=== PATIENT | female | born 1995 | race Caucasian/White ===

== ENCOUNTER 2019-09-28 03:22 | Emergency (ER) | payer BC, MEDICAID | END 2019-09-28 03:44 | disposition home or self-care (01) | LOC: ERS 03:22 | DX: O99.89 Other specified diseases and conditions complicating pregnancy, childbirth and the puerperium (principal); R10.30 Lower abdominal pain, unspecified; M54.5 Low back pain; O99.281 Endocrine, nutritional and metabolic diseases complicating pregnancy, first trimester; E03.9 Hypothyroidism, unspecified; O99.341 Other mental disorders complicating pregnancy, first trimester; F31.9 Bipolar disorder, unspecified; F20.9 Schizophrenia, unspecified; O99.331 Smoking (tobacco) complicating pregnancy, first trimester; F17.210 Nicotine dependence, cigarettes, uncomplicated; Z79.899 Other long term (current) drug therapy; Z3A.08 8 weeks gestation of pregnancy ==

== ENCOUNTER 2019-12-26 10:31 | Outpatient (CLI) | payer BC, OTHER ==
--- NOTE | 2019-12-26 11:51 | ULT ---
ULTRASOUND OBSTETRICAL COMPLETE: DATE: 12/26/2019 HISTORY: 24-year-old female ICD-10: "O09.892, supervision of other high-risk pregnancies, second trim maxwell. Comments: Complete anatomy, size and dates, cervical length" FINDINGS: number: jane lie: Cephalic Maternal cervix: 3 cm. Closed. Placenta: Anterior. No placenta previa. Amniotic fluid volume: ALFREDITO = 15 cm heart rate: 134 bpm The following anatomy is visualized, with no evidence of anomalies: Head, cerebellum, lateral ventricles, four-chamber heart, stomach, kidneys, cord insertion, bladder, cervical spine, thoracic spine, lumbar spine, sacrum, nose and lips, upper extremities, lower extremities, and three-vessel cord. biometry: Biparietal diameter (BPD): 5.0 cm 21 w 1 d Head circumference (HC): 18.1 cm 20 w 4 d Abdominal circumference (AC): 15.2 cm 20 w 3 d Femur length (FL): 3.7 cm 21 w 5 d Average ultrasound age (AUA): 21 w 0 d Estimated date of delivery (SUKHI): 05/07/2020 Estimated weight (EFW): 389 g +/- 57 g IMPRESSION: 1) Live 2nd trimester intrauterine gestation. 2) Estimated gestational age of 21 weeks, 0 days 3) cephalic lie. 4) no anatomic abnormality identified.
== END 2019-12-26 10:32 | disposition home or self-care (01) ==
LOC: BICULT 10:31
PROVIDERS: ATTEND Family Medicine
DX: O09.892 Supervision of other high risk pregnancies, second trimester (principal); Z3A.21 21 weeks gestation of pregnancy
CPT/HCPCS: 76805

== ENCOUNTER 2020-03-27 03:11 | Inpatient (IN) | payer BC, OTHER ==
[2020-03-27] MEDS ORDERED: hydrALAZINE 20 MG/ML VIAL SLOW IVP PRN ×2 (03:46→06:37)
[2020-03-27 03:57] VITALS: BP 101/66; TEMP 98.9; BMI 29.2
[2020-03-27] MEDS ORDERED: Lactated Ringer's 1,000 ML IV SCH (04:00)
[2020-03-27] MEDS: Lactated Ringer's 1,000 ML IV SCH ×3 (04:45→15:15)
[2020-03-27 05:05] LABS: Amphetamine Not Detected (NotDetected); Barbiturates Screen Not Detected (NotDetected); Benzodiazepine Screen Not Detected (NotDetected); Cocaine Metabolite Screen Not Detected (NotDetected); Medtox Control Line Valid? VALID (VALID); Medtox Reader # READER 1; Methadone Not Detected (NotDetected); Methamphetamine Not Detected (NotDetected); Opiate Screen Not Detected (NotDetected); Oxycodone Screen Not Detected (NotDetected); Phencyclidine (PCP) Not Detected (NotDetected); THC/Cannabinoid Screen Not Detected (NotDetected); Tricyclic Screen Not Detected (NotDetected)
[2020-03-27] MEDS ORDERED: Butorphanol Tartrate 1 MG/ML VIAL SLOW IVP PRN ×2 (05:34→06:37)
[2020-03-27 05:51] LABS: Bacteria/HPF None Seen HPF (None Seen); Bilirubin Negative (Negative); Blood, Urine 2+ (Negative); Clarity Clear (Clear); Glucose, Urine (Dipstick) Normal (Negative); Ketone, Urine Negative (Negative); Leukocyte 75 Leu/uL (Negative); Nitrite Negative (Negative); Protein, Urine (Dipstick) Negative (Neg-Trace); RBC/HPF 0-3 HPF (0-3); Specific Gravity, Urine 1.013 (1.002-1.036); Squamous Epithelial 0-3 HPF (0-3); Urobilinogen Normal mg/dL (Less than 2); pH, Urine 7.5 (5.0-9.0)
[2020-03-27] MEDS ORDERED: Zolpidem Tartrate 5 MG TAB PO PRN (06:37)
[2020-03-27] MEDS ORDERED: Ondansetron PF 4 MG/2 ML Vial IVP PRN (06:37)
[2020-03-27] MEDS ORDERED: Promethazine HCl 25 MG/ML VIAL IM PRN (06:37)
[2020-03-27] MEDS ORDERED: Pen G 2.5 MILL.UNITS/50 ML BAG IVPB SCH (07:00)
[2020-03-27] MEDS ORDERED: Penicillin G Potassium 2.5 MILL.UNITS in Sodium Chloride 0.9% 50 ML IVPB SCH (07:00)
--- NOTE | 2020-03-27 07:14 | HP ---
REGULAR PHYSICIAN: Morgan Rivero MD CHIEF COMPLAINT: Contractions at home. HISTORY OF PRESENT ILLNESS: Ms. Trivedi is a 24-year-old white G4, P3, with an estimated date of confinement of 05/07/2020, who presents complaining of uterine contractions over the last two days. She also reports associated spotting. Her care has been with Dr. Rivero and has been uncomplicated up to this point. PAST OBSTETRICAL HISTORY: Includes 3 previous vaginal deliveries, earliest at 35 weeks. PAST MEDICAL HISTORY: Includes depression, hypothyroidism, and a history of decreased platelet count. PAST SURGICAL HISTORY: None. CURRENT MEDICATIONS: 1. vitamins. 2. Iron. 3. Levothyroxine 75 mcg daily. 4. Zoloft 100 mg daily. ALLERGIES: NO KNOWN ALLERGIES. SOCIAL HISTORY: She states she smokes. She denies drug use. FAMILY HISTORY: Unremarkable. REVIEW OF SYSTEMS: Denies nausea, vomiting, fever, or chills. Admits uterine contractions and spotting. She endorses good movement. PHYSICAL EXAMINATION: VITAL SIGNS: Vital signs are stable. She is afebrile. CHEST: Clear to auscultation. CARDIOVASCULAR: Regular rate and rhythm. ABDOMEN: Soft, nontender, and gravid. PELVIC EXAM: The cervix is 1 cm dilated, 50% effaced, posterior, but soft. There is bloody show seen on exam. heart rate tracing is stable. There are no decelerations. Uterine contractions every 2 to 4 minutes are seen. Patient is given Stadol and despite this, she has continued to contract. LABORATORY: Urinalysis is unremarkable with no bacteria seen. Urine drug screen is negative. Ultrasound shows a single cephalic fetus with weight of 2337 g. Her ALFREDITO is 15.3. No evidence of placenta previa is seen. ASSESSMENT: 1. Thirty-four and one seventh week intrauterine . 2. labor. PLAN: I have discussed the clinical scenario with Dr. Rivero and the decision at this time will be to begin p.o. Procardia as well as giving her steroids. Penicillin for group B strep prophylaxis has been ordered and a group B strep culture will be obtained. The patient will be observed closely. Job ID: [id number]
[2020-03-27 08:10] LABS: Hemoglobin 11.1 g/dL (12.0-16.0); Mean Corpuscular HGB CONC 34.6 g/dL (32.0-36.0); Mean Corpuscular Hemoglobin 34.6 pg (27.0-31.0); Mean Platelet Volume 9.5 fL (7.4-10.4); Platelet Count 96 thou/uL (130-400); RBC Distribution Width 12.2 % (11.5-14.5); Red Blood Cell (RBC) Count 3.21 mill/uL (4.20-5.40); White Blood Cell (WBC) Count 17.5 thou/uL (4.8-10.8)
--- NOTE | 2020-03-27 08:10 | ULT ---
PRELIMINARY REPORT/[facility]/EMERGENCY AFTER HOURS PROCEDURE: EXAM: US Obstetrical, Complete >14 weeks. CLINICAL HISTORY: Cramping pelvic and lower back pain, vaginal spotting TECHNIQUE: Transabdominal imaging of the maternal pelvis and a > 14 week gestation with image documentation. COMPARISON: None provided. FINDINGS: FETUS: There is a single living intrauterine gestation, estimated gestational age 34 weeks 3 days POSITION: position is vertex. HEART RATE: The heart rate is 144 beats per minute. BIOMETRICS: Based on composite biometry, the estimated gestational age by ultrasound is 34 weeks 1 day chanel esponding to a due date of 05/05/2020. The estimated weight is 2337 g. ANATOMIC SURVEY: The visualized anatomy is unremarkable. PLACENTA: The placenta is located anterior. No sonographic evidence for previa or abruption. AMNIOTIC FLUID: Within normal limits. The ALFREDITO is 15.3 cm CERVIX: Closed. Unremarkable as visualized. The cervix measures 3.1 cm IMPRESSION: Single viable intrauterine . No acute abnormality. ELECTRONICALLY SIGNED BY: Jayme Ghotra MD Mar 27, 2020 4:43:18 AM CDT This report is intended for review by the ordering physician only, in accordance of law. If you recei ve this report in error, please call [facility] at [phone]. FINAL REPORT OB ULTRASOUND: There is a viable intrauterine with gestational age by ultrasound of 34 weeks and 3 days. N o abnormality identified. I am in agreement with the preliminary report issued by [facility]. POS: AGW
[2020-03-27 08:21] LABS: HBSAg Index 0.16 S/CO (0-0.99); Hep B Surf Ag Non-Reactive S/CO (NonReactive); Syphilis Antibody Nonreactive (Nonreactive); Syphilis Antibody Index 0.04 S/CO (<1.00 Non-Reactive)
[2020-03-27] MEDS: NIFEdipine 10 MG CAP PO SCH ×3 (08:27→18:49)
[2020-03-27] MEDS: Betamet Acet/Betamet Na Ph 30 MG/5 ML VIAL IM SCH (08:28)
[2020-03-27] MEDS ORDERED: Azithromycin 500 MG in Sodium Chloride 0.9% 250 ML 250 ML IVPB SCH (12:45)
[2020-03-27] MEDS ORDERED: Terbutaline Sulfate 1 MG/ML VIAL ONE (14:54)
[2020-03-27] MEDS ORDERED: Penicillin G Potassium 5 MILL.UNITS VIAL ONE (14:54)
[2020-03-27] MEDS: Terbutaline Sulfate 1 MG/ML VIAL SC SCH ×2 (15:09→16:28)
[2020-03-27] MEDS ORDERED: Penicillin G 2.5 MILL.units 50 ML ONE (19:05)
[2020-03-28] MEDS ORDERED: Penicillin G 2.5 MILL.units 50 ML ONE ×2 (00:10→05:06)
[2020-03-28] MEDS: Lactated Ringer's 1,000 ML IV SCH (00:15)
[2020-03-28] MEDS: NIFEdipine 10 MG CAP PO SCH ×2 (00:22→07:09)
[2020-03-28] MEDS ORDERED: Levothyroxine Sodium 75 MCG TAB PO SCH (07:30)
[2020-03-28] MEDS: Betamet Acet/Betamet Na Ph 30 MG/5 ML VIAL IM SCH (08:28)
[2020-03-29] MEDS ORDERED: Levothyroxine Sodium 75 MCG TAB PO SCH (06:00)
== END 2020-03-28 08:38 | disposition home health service (06) | DRG 833 ==
LOC: L&D/OP 03:11 → L&D 06:38
PROVIDERS: ADMIT Obstetrics & Gynecology; ATTEND Obstetrics & Gynecology
DX: O60.03 Preterm labor without delivery, third trimester (principal); Z3A.34 34 weeks gestation of pregnancy; O99.343 Other mental disorders complicating pregnancy, third trimester; F32.9 Major depressive disorder, single episode, unspecified; O99.283 Endocrine, nutritional and metabolic diseases complicating pregnancy, third trimester; E03.9 Hypothyroidism, unspecified
CPT/HCPCS: 36415; 76815; 80306; 81003; 81015; 85027; 86780; 86850; 86900; 86901; 87081; 87340; J0456; J0595; J0702; J2540; J3105; J7050

== ENCOUNTER 2020-04-01 22:05 | Day surgery (SDC) | payer BC, OTHER ==
[2020-04-01 22:33] VITALS: BMI 24.3
[2020-04-01] MEDS ORDERED: hydrALAZINE 20 MG/ML VIAL SLOW IVP PRN (22:42)
[2020-04-01] MEDS ORDERED: Lactated Ringer's 1,000 ML IV SCH (22:45)
[2020-04-01] MEDS ORDERED: Morphine 4 MG/ML VIAL IM SCH (23:30)
[2020-04-01] MEDS ORDERED: Ondansetron PF 4 MG/2 ML Vial IVP SCH (23:30)
[2020-04-01] MEDS ORDERED: Morphine 4 MG/ML VIAL SLOW IVP SCH (23:59)
[2020-04-02 00:30] LABS: Bacteria/HPF None Seen HPF (None Seen); Bilirubin Negative (Negative); Blood, Urine Negative (Negative); Clarity Clear (Clear); Glucose, Urine (Dipstick) Normal (Negative); Ketone, Urine Negative (Negative); Leukocyte Negative Leu/uL (Negative); Nitrite Negative (Negative); Protein, Urine (Dipstick) Negative (Neg-Trace); RBC/HPF 0-3 HPF (0-3); Specific Gravity, Urine 1.002 (1.002-1.036); Squamous Epithelial 0-3 HPF (0-3); Urobilinogen Normal mg/dL (Less than 2); WBC/HPF 0-3 HPF (0-3)
--- NOTE | 2020-04-02 02:19 | PRG ---
DATE OF SERVICE: 04/01/2020 PRIMARY OB: Morgan Rivero MD CHIEF COMPLAINT: Abdominal pains and vaginal bleeding. HISTORY OF PRESENT ILLNESS: The patient is a 24-year-old G4, P3 female, with an intrauterine at approximately 34 weeks and 6 days, representing to Labor and Delivery with uterine contractions and some bloody show. The patient reports that she had some bleeding when she wiped today. She also reports she is having low back pain in her tailbone. She has been on bed rest for the last several days at doctor's orders. She denies fever, cough, headache, chest pain, or shortness of breath. She denies nausea, vomiting, diarrhea, or constipation. She denies vaginal change in discharge other than the bloody show that she described. Denies urinary urgency or frequency. The patient was seen about 5 days ago here in Labor and Delivery for similar complaint, was given steroids and was discharged home. Cervical exam at that time was 1 and 50. PAST MEDICAL HISTORY: Includes depression and hypothyroidism. PAST SURGICAL HISTORY: Negative. OB HISTORY: Two term vaginal deliveries, one at 36 weeks, one . ALLERGIES: NO KNOWN DRUG ALLERGIES. MEDICATIONS: 1. vitamins. 2. Iron. 3. Levothyroxine 75 mcg daily. 4. Zoloft 100 mg daily. SOCIAL HISTORY: Positive for tobacco. She denies drug use. PHYSICAL EXAMINATION: VITAL SIGNS: Blood pressure 102/63, heart rate of 90, and respiratory rate of 18. GENERAL: She appears to be in no acute distress. She is alert, oriented, cooperative, and pleasant to interact with. HEENT: Head is normocephalic and atraumatic. LUNGS: Clear to auscultation bilaterally. HEART: Regular rate and rhythm. ABDOMEN: Gravid and soft. EXTREMITIES: Nontender and nonedematous. : Vulva is without masses, lesions, or erythema. Vagina is moist. She does have a noticeable odor reminiscent of bacterial vaginosis, though minimal discharge. Cervix is visibly open on the external os. On digital exam, she is 1 and 50, unchanged from 5 days ago. DIAGNOSTIC DATA: heart tracing shows the fetus with a baseline in the 140s with moderate long-term variability, positive 15 x 15 accelerations, no decelerations. She has irritability on the monitor. Urinalysis is negative for any signs of infection, BP3 is pending. ASSESSMENT AND PLAN: The patient is a 24-year-old female with an intrauterine at 34 weeks and 6 days, coming in for contractions. There is no evidence of labor at this time, nor urinary tract infection. She has been given hydration and a total of 10 mg of morphine 4 IV and 6 IM. The patient has been here with us now for 3 hours and 15 minutes. The patient is reporting that she is feeling a lot better, though she continues to feel contractions. Cervical exam is being checked currently, anticipate no change. The patient anticipate discharge home. She has a followup with Dr. Rivero in the near future. She has been given labor precautions. Fetus has a category 1 tracing and reactive NST. Job ID: [id number]
== END 2020-04-02 02:00 | disposition home or self-care (01) ==
LOC: L&D/OP 22:05
PROVIDERS: ATTEND Family Medicine
DX: O47.03 False labor before 37 completed weeks of gestation, third trimester (principal); O99.891 Other specified diseases and conditions complicating pregnancy; M54.5 Low back pain; O46.93 Antepartum hemorrhage, unspecified, third trimester; O99.343 Other mental disorders complicating pregnancy, third trimester; F32.9 Major depressive disorder, single episode, unspecified; O99.283 Endocrine, nutritional and metabolic diseases complicating pregnancy, third trimester; E03.9 Hypothyroidism, unspecified; O09.213 Supervision of pregnancy with history of pre-term labor, third trimester; O99.333 Smoking (tobacco) complicating pregnancy, third trimester; F17.200 Nicotine dependence, unspecified, uncomplicated; Z3A.34 34 weeks gestation of pregnancy; Z79.899 Other long term (current) drug therapy
CPT/HCPCS: 81001; 87480; 87510; 87660; 96360; 96361; 96372; 96375; 99285; J2270; J2405

== ENCOUNTER 2020-04-07 22:04 | Day surgery (SDC) | payer BC, OTHER ==
[2020-04-07 22:48] VITALS: BP 108/65; BMI 24.6
[2020-04-07] MEDS ORDERED: hydrALAZINE 20 MG/ML VIAL SLOW IVP PRN (23:07)
--- NOTE | 2020-04-08 00:14 | ULT ---
Limited Obstetrical Ultrasound INDICATION: Vaginal bleeding at 35 weeks TECHNIQUE: Grayscale, M-mode Doppler, color Doppler and spectral Doppler images were obtained. Meli sheridan is focused on the clinical indication. COMPARISON: Prior exam dated March 27, 2020 FINDINGS: GESTATION: Number of gestations: Single. Presentation: Cephalic. heart rate: 152 bpm. Placental location: Anterior Previa: No evidence for previa. Cervical length: Not well seen ALFREDITO: 16.2 cm. LIMITED SURVEY: No abnormality as visualized. BIOMETRY: Biparietal diameter: 8.8cm, 35 weeks and 4 days, 52nd percentile. Head circumference: 32.34 cm, 36 weeks and 4 days, 39th percentile Abdominal circumference: 31.18 cm, 35 weeks and 1 day, 41st percentile Femoral length: 6.65cm, 34 weeks and 2 days, 12th percentile Estimated weight: 2587 g +/- 383g (5 lbs. 11 oz. +/- 14 ounces), 32nd percentile The average gestational age by ultrasound is 35 weeks and 3 dayswith estimated due date of May. The estimated dates by clinical data is 35 weeks and 5 dayswith estimated due date of May 07 0. IMPRESSION: 1. Single live intrauterine gestation with size and dates as above.
[2020-04-08] MEDS ORDERED: hydrALAZINE 20 MG/ML VIAL SLOW IVP PRN (01:07)
[2020-04-08] MEDS ORDERED: Acetaminophen 500 MG TAB PO PRN (01:07)
[2020-04-08] MEDS ORDERED: Butorphanol Tartrate 1 MG/ML VIAL SLOW IVP PRN (01:07)
[2020-04-08] MEDS ORDERED: Promethazine HCl 25 MG/ML VIAL IM PRN (01:07)
[2020-04-08] MEDS ORDERED: Ondansetron PF 4 MG/2 ML Vial IVP PRN (01:07)
[2020-04-08] MEDS ORDERED: Lactated Ringer's 1,000 ML IV SCH ×2 (01:15)
[2020-04-08 01:51] LABS: Hemoglobin 10.6 g/dL (12.0-16.0); Mean Corpuscular HGB CONC 35.6 g/dL (32.0-36.0); Mean Corpuscular Volume 98.4 fL (78.0-98.0); Mean Platelet Volume 9.1 fL (7.4-10.4); Platelet Count 125 thou/uL (130-400); RBC Distribution Width 11.9 % (11.5-14.5); Red Blood Cell (RBC) Count 3.02 mill/uL (4.20-5.40); White Blood Cell (WBC) Count 14.7 thou/uL (4.8-10.8)
--- NOTE | 2020-04-08 05:49 | HP ---
REGULAR PHYSICIAN: Morgan Rivero MD. CHIEF COMPLAINT: Bleeding and cramping. HISTORY OF PRESENT ILLNESS: Ms. Trivedi is a 24-year-old white, G4, P3, with an estimated date of confinement of 05/07/2020, who presents complaining of cramping as well as bleeding with small clots. She denies ruptured membranes or decreased movement. Of note, is the fact that she has been evaluated several times over the last few weeks and was given a course of steroids on 03/27/2020. PAST OBSTETRICAL HISTORY: Includes 3 vaginal deliveries, the earliest of which was 35 weeks. PAST MEDICAL HISTORY: Includes bipolar, depression, hypothyroidism, and a history of thrombocytopenia. PAST SURGICAL HISTORY: None. CURRENT MEDICATIONS: 1. vitamins. 2. Iron. 3. Synthroid 75 mcg daily. 4. Zoloft 100 mg daily. SOCIAL HISTORY: Denies tobacco, alcohol, or drug use. PHYSICAL EXAMINATION: VITAL SIGNS: In triage, her vital signs are stable and she is afebrile. GENERAL: She is quiet and difficult to communicate with. ABDOMEN: Soft, nontender, and gravid. Shows a small amount of clotted blood in the vault. PELVIC: Shows a small amount of clotted blood in the vault. Shows the cervix to be 1 cm dilated, 50% effaced with the head palpable in the lower segment. heart rate tracing is stable with no decelerations, however, irritability with regular contractions are seen. IMAGING: Ultrasound shows a jane cephalic fetus with an ALFREDITO of 16.2. Placenta is anterior. Estimated weight is 2587 g. Biometry is consistent with dates. ASSESSMENT: 1. 35 and 6/7-week intrauterine . 2. contractions and bleeding. 3. Steroids given on 03/27/2020. PLAN: At this time, the patient will be admitted and hydrated and observed. She already has steroids on board, and in view of the bleeding that she is having now, she will not be tocolysed. I discussed this with Dr. Rivero and he agrees that she should be observed. The patient will be watched closely. Job ID: [id number]
[2020-04-08] MEDS ORDERED: FLU VACC QS2020-21(6MOS UP)/PF 60 MCG/0.5 ML SYRINGE IM ONE (09:00)
[2020-04-08 17:33] VITALS: TEMP 98.6
== END 2020-04-08 16:20 | disposition home health service (06) ==
LOC: L&D/OP 22:04
PROVIDERS: ATTEND Family Medicine
DX: O46.93 Antepartum hemorrhage, unspecified, third trimester (principal); O47.03 False labor before 37 completed weeks of gestation, third trimester; O99.283 Endocrine, nutritional and metabolic diseases complicating pregnancy, third trimester; E03.9 Hypothyroidism, unspecified; O99.343 Other mental disorders complicating pregnancy, third trimester; F31.9 Bipolar disorder, unspecified; Z3A.35 35 weeks gestation of pregnancy; Z79.899 Other long term (current) drug therapy
CPT/HCPCS: 36415; 76815; 85027; 86850; 86900; 86901; 99285; J0595

== ENCOUNTER 2020-04-15 00:48 | Inpatient (IN) | payer BC, OTHER ==
[2020-04-15 01:16] VITALS: BMI 23.6
[2020-04-15] MEDS: Lactated Ringer's 1,000 ML IV SCH ×2 (01:22→19:15)
[2020-04-15] MEDS ORDERED: Ondansetron PF 4 MG/2 ML Vial IVP PRN ×3 (02:00→14:29)
[2020-04-15] MEDS ORDERED: Promethazine HCl 25 MG/ML VIAL IM PRN ×2 (02:00→03:11)
[2020-04-15] MEDS ORDERED: hydrALAZINE 20 MG/ML VIAL SLOW IVP PRN ×2 (02:00→14:29)
[2020-04-15] MEDS ORDERED: Butorphanol Tartrate 1 MG/ML VIAL SLOW IVP PRN (02:00)
[2020-04-15] MEDS ORDERED: Acetaminophen 500 MG TAB PO PRN (02:00)
[2020-04-15 02:05] LABS: Hemoglobin 11.8 g/dL (12.0-16.0); Mean Corpuscular HGB CONC 35.9 g/dL (32.0-36.0); Mean Corpuscular Hemoglobin 35.3 pg (27.0-31.0); Mean Corpuscular Volume 98.4 fL (78.0-98.0); Platelet Count 126 thou/uL (130-400); RBC Distribution Width 12.2 % (11.5-14.5); Red Blood Cell (RBC) Count 3.35 mill/uL (4.20-5.40); White Blood Cell (WBC) Count 12.2 thou/uL (4.8-10.8)
[2020-04-15] MEDS ORDERED: NS w/ Oxytocin 10 units 500 ML IV SCH ×2 (02:15)
[2020-04-15] MEDS ORDERED: Methylergonovine 0.2 MG/ML VIAL IM PRN (02:15)
[2020-04-15] MEDS ORDERED: NS / Oxytocin 40 units/1000ml 1,000 ML IV SCH ×2 (02:15→14:29)
[2020-04-15] MEDS ORDERED: HYDROcodone/Acetaminophen 5/325 mg Tablet PO PRN ×3 (02:15→14:29)
[2020-04-15] MEDS ORDERED: Diphenoxylate HCl/Atropine Tablet PO PRN ×2 (02:15)
[2020-04-15] MEDS ORDERED: Ibuprofen 800 MG TAB PO PRN (02:15)
[2020-04-15] MEDS ORDERED: Carboprost 250 MCG/ML AMP IM PRN (02:15)
[2020-04-15] MEDS ORDERED: Lidocaine 1% (PF) 30 ML VIAL SC PRN (02:15)
[2020-04-15] MEDS ORDERED: Misoprostol 200 MCG TAB RC PRN (02:15)
[2020-04-15] MEDS ORDERED: Fentanyl 4 mcg/Bup 0.1% Cadd 100 ML ONE ×2 (02:31→10:14)
[2020-04-15 02:56] LABS: HBSAg Index 0.18 S/CO (0-0.99); Hep B Surf Ag Non-Reactive S/CO (NonReactive)
[2020-04-15] MEDS ORDERED: Lactated Ringer's 500 ML IV PRN (03:11)
[2020-04-15] MEDS ORDERED: Acetaminophen 325 MG TAB PO PRN (03:11)
[2020-04-15] MEDS ORDERED: EPHEDRINE 25 MG/5 ML SYRINGE SLOW IVP PRN (03:11)
[2020-04-15] MEDS ORDERED: Naloxone HCl 0.4 mg/ml Vial IVP PRN ×2 (03:11)
[2020-04-15] MEDS ORDERED: diphenhydrAMINE 50 MG/ML VIAL IVP PRN (03:11)
[2020-04-15] MEDS ORDERED: Fentanyl 4 mcg/Bupivacaine 0.1% Cassette 100 ML EPIDURAL SCH (03:15)
[2020-04-15] MEDS ORDERED: Communication Order-Pharmacy FS SCH (03:15)
[2020-04-15 04:56] LABS: Syphilis Antibody Nonreactive (Nonreactive); Syphilis Antibody Index 0.05 S/CO (<1.00 Non-Reactive)
[2020-04-15] MEDS ORDERED: Magnesium Sulfate 20 gm/500 ml 0 GM/0 ML BAG ONE (09:01)
[2020-04-15 12:50] LABS: SARS-CoV-2 MS2 Positive; SARS-CoV-2 N Gene Negative; SARS-CoV-2 S Gene Negative; SARS-CoV-2 by NAA Not Detected (NotDetected); SARS-CoV-2 orf1ab Negative
[2020-04-15 13:31] LABS: Actual Bicarbonate (HCO3a) 23.1 mEq/L (22-28); Base Excess (BEa) -7.1 mEq/L (-2.0 to +3.0)
[2020-04-15 13:33] LABS: Actual Bicarbonate (HCO3v) 24 mEq/L (22-28); Base Excess -3.9 mEq/L (-2.0 to +3.0); pH (Cord, venous) 7.27 (7.32-7.43)
[2020-04-15] MEDS ORDERED: Bupivacaine PF 0.5% 30 ML VIAL ONE (14:07)
[2020-04-15] MEDS ORDERED: Bupivacaine/Epinephrine 0.25% 30 ML VIAL ONE (14:07)
[2020-04-15] MEDS ORDERED: Lanolin Ointment 7 GM TUBE TOP PRN (14:29)
[2020-04-15] MEDS ORDERED: Milk Of Magnesia 30 ML UDCUP PO PRN (14:29)
[2020-04-15] MEDS ORDERED: Benzocaine-Menthol 82.5 ML CAN TOP PRN (14:29)
[2020-04-15] MEDS ORDERED: diphenhydrAMINE 25 MG CAP PO PRN (14:29)
[2020-04-15] MEDS ORDERED: Bisacodyl 10 MG SUPP PR PRN (14:29)
[2020-04-15] MEDS ORDERED: Ibuprofen 800 MG TAB PO SCH (15:00)
[2020-04-15] MEDS ORDERED: Adacel (T-DAP) 0.5 ML SYRINGE IM ONE (15:00)
[2020-04-15] MEDS: Ferrous Sulfate 325 MG TAB PO SCH (16:35)
[2020-04-15] MEDS: Ibuprofen 800 MG TAB PO SCH (21:17)
[2020-04-15] MEDS: Docusate Calcium (SURFAK) 240 MG CAP PO SCH (21:17)
[2020-04-16] MEDS: Ibuprofen 800 MG TAB PO SCH ×3 (05:09→20:51)
[2020-04-16] MEDS: Ferrous Sulfate 325 MG TAB PO SCH ×2 (08:39→17:15)
[2020-04-16] MEDS: HYDROcodone/Acetaminophen 5/325 mg Tablet PO PRN ×3 (08:40→18:14)
[2020-04-16] MEDS: Docusate Calcium (SURFAK) 240 MG CAP PO SCH ×2 (08:40→20:52)
[2020-04-16] MEDS: Prenatal Vitamin 1 TAB PO SCH (08:40)
[2020-04-17] MEDS: Ibuprofen 800 MG TAB PO SCH ×3 (05:10→20:18)
[2020-04-17] MEDS: Docusate Calcium (SURFAK) 240 MG CAP PO SCH ×2 (08:44→20:18)
[2020-04-17] MEDS: Prenatal Vitamin 1 TAB PO SCH (08:44)
[2020-04-17] MEDS: HYDROcodone/Acetaminophen 5/325 mg Tablet PO PRN (16:25)
[2020-04-17] MEDS: Ferrous Sulfate 325 MG TAB PO SCH ×2 (16:41→19:16)
[2020-04-18] MEDS: Ibuprofen 800 MG TAB PO SCH (04:44)
[2020-04-18] MEDS: Prenatal Vitamin 1 TAB PO SCH (09:16)
[2020-04-18] MEDS: Docusate Calcium (SURFAK) 240 MG CAP PO SCH (09:16)
[2020-04-18] MEDS: Ferrous Sulfate 325 MG TAB PO SCH (09:19)
[2020-04-18 09:56] VITALS: BP 97/60; TEMP 97.8
== END 2020-04-18 10:25 | disposition home or self-care (01) | DRG 807 ==
LOC: L&D/OP 00:48 → L&D 01:18 → 3SW 15:51
PROVIDERS: ADMIT Family Medicine; ATTEND Family Medicine
PROC: 10E0XZZ Delivery of Products of Conception, External Approach (ICD-10-PCS; principal; 2020-04-16)
DX: O60.14X0 Preterm labor third trimester with preterm delivery third trimester, not applicable or unspecified (principal); Z37.0 Single live birth; O69.1XX0 Labor and delivery complicated by cord around neck, with compression, not applicable or unspecified; Z3A.36 36 weeks gestation of pregnancy; Z20.828 Contact with and (suspected) exposure to other viral communicable diseases
CPT/HCPCS: 36415; 51702; 82805; 85027; 86780; 86850; 86900; 86901; 87340; 87635; 99285; J2590; S0020; U0003